=== PATIENT | male | born 1995 | race Caucasian/White ===

== ENCOUNTER 2017-10-24 20:37 | Emergency (ER) | payer MEDICAID, OTHER ==
[2017-10-24] MEDS ORDERED: Ketorolac 30 MG/ML SDV IM ONE (21:07)
[2017-10-24] MEDS ORDERED: Ondansetron 4 MG/2 ML SDV IM ONE (21:07)
[2017-10-24] MEDS ORDERED: hydrOXYzine HCl 50 MG/ML SDV IM ONE (21:07)
--- NOTE | 2017-10-24 21:12 | EDM.PDOC ---
ED HPI GENERAL MEDICAL PROBLEM - General Chief Complaint: Headache Stated Complaint: MIGRAINE Time Seen by Provider: 10/24/17 21:00 Source of Information: Reports: Patient, Family History Limitations: Reports: No Limitations - History of Present Illness INITIAL COMMENTS - FREE TEXT/NARRATIVE: Matthias reports onset of throbbing frontal headache over the past 2 hrs that is unimproved with Ibuprofen 600 mg. There is some photophobia, but no gosia nausea. He reportedly has a PMH of migraine headaches since age 13. 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 Frontal Headache Pain Score (Numeric/FACES): 8 - Related Data Allergies Allergy/AdvReac Type Severity Reaction Status Date / Time amoxicillin [Amoxicillin] Allergy Hives Verified 08/30/14 14:04 Home Meds: Home Meds NK [No Known Home Meds] 08/30/14 [History] Past Medical History - Past Health History Medical/Surgical History: Denies Medical/Surgical History Gastrointestinal History: Reports: Gastritis Neurological History: Reports: Migraines - Past Surgical History GI Surgical History: Reports: None Social & Family History - Family History Family Medical History: Noncontributory - Tobacco Use Smoking Status *Q: Never Smoker Years of Tobacco use: 5 Second Hand Smoke Exposure: No - Caffeine Use Caffeine Use: Reports: Soda - Alcohol Use Days Per Week of Alcohol Use: 2 Number of Drinks Per Day: 7 Total Drinks Per Week: 14 - Recreational Drug Use Recreational Drug Use: No - Living Situation & Occupation Living situation: Reports: Single Occupation: Employed ED ROS GENERAL - Review of Systems Review Of Systems: ROS reveals no pertinent complaints other than HPI. - Physical Exam Exam: See Below Exam Limited By: No Limitations General Appearance: Alert, WD/WN, Moderate Distress Eye Exam: Bilateral Eye: EOMI, Normal Inspection, PERRL Ears: Normal External Exam, Normal TMs Nose: Normal Inspection Throat/Mouth: Normal Inspection, Normal Oropharynx Head Exam: Normocephalic Neck: Normal Inspection, Supple Respiratory/Chest: Lungs Clear, Normal Breath Sounds Cardiovascular: Regular Rate, Rhythm, No Murmur GI/Abdominal: Normal Bowel Sounds, Soft, Non-Tender, No Organomegaly Neuro Exam (Abbreviated): Alert, Oriented, CN II-XII Intact, Normal Cognition, Normal Gait, No Motor/Sensory Deficits Back Exam: Normal Inspection Extremities: Normal Inspection Psychiatric: Normal Affect, Normal Mood Skin Exam: Warm, Dry, Intact Course - Vital Signs Text/Narrative:: I administered Toradol 30 mg IM, Vistaril 50 mg IM, and Zofran 4 mg IM before discharge. Patient tolerated well. Last Recorded V/S: Last Vital Signs Temp 36.6 C 10/24/17 20:45 Pulse 83 10/24/17 20:45 Resp 18 10/24/17 20:45 BP 138/71 10/24/17 20:45 Pulse Ox 100 10/24/17 20:45 - Orders/Labs/Meds Orders: Active Orders 24 hr Category Date Time Status Ketorolac [Toradol] Med 10/24/17 21:07 Once 30 mg IM ONETIME ONE Ondansetron [Zofran] Med 10/24/17 21:07 Once 4 mg IM ONETIME ONE hydrOXYzine HCl [Vistaril] Med 10/24/17 21:07 Once 50 mg IM ONETIME ONE Departure - Departure Time of Disposition: 21:11 Disposition: Home, Self-Care 01 Condition: Fair Clinical Impression: Migraine - Discharge Information Referrals: Arnav Keith MD [Primary Care Provider] - - Problem List & Annotations (1) Migraine SNOMED Code(s): 19382748 Code(s): G43.909 - MIGRAINE, UNSP, NOT INTRACTABLE, WITHOUT STATUS MIGRAINOSUS Status: Acute Current Visit: Yes Annotation/Comment:: Sxs cares, and follow up if needed. - Problem List Review Problem List Initiated/Reviewed/Updated: Yes - My Orders Last 24 Hours: My Active Orders 10/24/17 21:07 Ketorolac [Toradol] 30 mg IM ONETIME ONE Ondansetron [Zofran] 4 mg IM ONETIME ONE hydrOXYzine HCl [Vistaril] 50 mg IM ONETIME ONE - Assessment/Plan Last 24 Hours: My Active Orders 10/24/17 21:07 Ketorolac [Toradol] 30 mg IM ONETIME ONE Ondansetron [Zofran] 4 mg IM ONETIME ONE hydrOXYzine HCl [Vistaril] 50 mg IM ONETIME ONE Plan: Follow up with PCP if needed.
== END 2017-10-24 21:48 | disposition home or self-care (01) ==
LOC: FB.ED 20:37
DX: G43.909 Migraine, unspecified, not intractable, without status migrainosus (principal); Z88.1 Allergy status to other antibiotic agents
CPT/HCPCS: 96372; 99283; J1885; J2405; J3410

== ENCOUNTER 2020-02-08 01:23 | Emergency (ER) | payer BC ==
--- NOTE | 2020-02-08 02:05 | EDM.PDOCBH ---
ED HPI GENERAL MEDICAL PROBLEM - General Chief Complaint: Behavioral/Psych Stated Complaint: MENTAL HEALTH Time Seen by Provider: 02/08/20 01:30 Source of Information: Reports: Patient, EMS History Limitations: Reports: No Limitations - History of Present Illness INITIAL COMMENTS - FREE TEXT/NARRATIVE: Patient presented to the ED accompanied by law enforcement because of suicidal ideation. The spouse called the police because he cut his left upper arm last night and today he has binge drinking. He has a history of anxiety and depression which is not treated. He was diagnosed with it since he was 12 Y/O. He said he just don't like taking psych meds. He had a previous history of attempted suicide when he was 12. - Related Data Allergies Allergy/AdvReac Type Severity Reaction Status Date / Time amoxicillin [Amoxicillin] Allergy Hives Verified 08/30/14 14:04 Past Medical History - Past Health History Medical/Surgical History: Denies Medical/Surgical History Gastrointestinal History: Reports: Gastritis Neurological History: Reports: Migraines - Past Surgical History GI Surgical History: Reports: None Social & Family History - Family History Family Medical History: Noncontributory - Caffeine Use Caffeine Use: Reports: Soda - Living Situation & Occupation Living situation: Reports: Single Occupation: Employed ED ROS GENERAL - Review of Systems Review Of Systems: See Below Constitutional: Reports: No Symptoms HEENT: Reports: No Symptoms Respiratory: Reports: No Symptoms Cardiovascular: Reports: No Symptoms Endocrine: Reports: No Symptoms : Reports: No Symptoms Musculoskeletal: Reports: No Symptoms Skin: Reports: Wound Neurological: Reports: No Symptoms Psychiatric: Reports: Agitation, Anxiety, Depression ED EXAM, BEHAVIORAL HEALTH - Physical Exam Exam: See Below Exam Limited By: No Limitations General Appearance: Alert, No Apparent Distress Ears: Normal External Exam, Normal Canal, Hearing Grossly Normal Nose: Normal Inspection, Normal Mucosa Throat/Mouth: Normal Inspection, Normal Lips, Normal Teeth, Normal Gums Head: Atraumatic, Normocephalic Neck: Normal Inspection, Supple, Non-Tender Respiratory/Chest: No Respiratory Distress, Lungs Clear, Normal Breath Sounds Cardiovascular: Normal Peripheral Pulses, Regular Rate, Rhythm, No Edema, No Gallop, No JVD GI/Abdominal: Normal Bowel Sounds, Soft, Non-Tender, No Organomegaly, No Distention Back Exam: Normal Inspection, Full Range of Motion Extremities: Normal Inspection, Other (several shalow cuts on left upper arm.) COURSE, BEHAVIORAL HEALTH COMP - Course Vital Signs: Last Vital Signs Temp 36.6 C 02/08/20 01:33 Pulse 131 H 02/08/20 01:33 Resp 18 02/08/20 01:33 BP 142/87 H 02/08/20 01:33 Pulse Ox 100 02/08/20 01:33 Orders, Labs, Meds: Laboratory Tests 02/08/20 02/08/20 02/08/20 Range/Units 01:55 01:55 01:55 WBC 5.1 (4.5-12.0) X10-3/uL RBC 4.92 (4.30-5.75) x10(6)uL Hgb 15.4 (13.5-17.8) g/dL Hct 47.0 (30.0-51.3) % MCV 95.5 (80-96) fL MCH 31.4 (27.7-33.6) pg MCHC 32.8 (32.2-35.4) g/dL RDW 12.0 (11.5-15.5) % Plt Count 314 (125-369) X10(3)uL MPV 7.7 (7.4-10.4) fL Neut % (Auto) 37.7 L (46-82) % Lymph % (Auto) 52.4 H (13-37) % [place] % (Auto) 6.8 (4-12) % Eos % (Auto) 2 (1.0-5.0) % Baso % (Auto) 1 (0-2) % Neut # (Auto) 1.9 (1.6-8.3) # Lymph # (Auto) 2.7 (0.6-5.0) # [place] # (Auto) 0.3 (0.0-1.3) # Eos # (Auto) 0.1 (0.0-0.8) # Baso # (Auto) 0.1 (0.0-0.2) # Sodium 147 H (135-145) mmol/L Potassium 3.6 (3.5-5.3) mmol/L Chloride 106 (100-110) mmol/L Carbon Dioxide 28 (21-32) mmol/L BUN 9 (7-18) mg/dL Creatinine 1.0 (0.70-1.30) mg/dL Est Cr Clr Drug Dosing 100.55 mL/min Estimated GFR (MDRD) > 60 (>60) BUN/Creatinine Ratio 9.0 (9-20) Glucose 144 H (80-116) mg/dL Calcium 8.5 L (8.6-10.2) mg/dL Total Bilirubin 0.3 (0.1-1.3) mg/dL AST 32 H (5-25) IU/L ALT 37 H (12-36) U/L Alkaline Phosphatase 85 (56-112) IU/L Total Protein 8.7 H (6.0-8.0) g/dL Albumin 4.5 (3.5-5.2) g/dL Globulin 4.2 g/dL Albumin/Globulin Ratio 1.1 TSH, Ultra Sensitive 1.53 (0.36-3.74) IU/mL Urine Color (YELLOW) Urine Appearance (CLEAR) Urine pH (5.0-6.5) Ur Specific [place] (1.010-1.025) Urine Protein (NEGATIVE) mg/dL Urine Glucose (UA) (NORMAL) mg/dL Urine Ketones (NEGATIVE) mg/dL Urine Occult Blood (NEGATIVE) Urine Nitrite (NEGATIVE) Urine Bilirubin (NEGATIVE) Urine Urobilinogen (NEGATIVE) mg/dL Ur Leukocyte Esterase (NEGATIVE) Urine RBC (0-5) Urine WBC (0-5) Ur Squamous Epith Cells (NS,R,O) Urine Bacteria (NS) Urine Mucus (NS) Salicylates 8.2 (<2.8) mg/dL Urine Opiates Screen (NEGATIVE) Ur Oxycodone Screen (NEGATIVE) Ur Propoxyphene Screen (NEGATIVE) Acetaminophen < 2 L (<2) ug/mL Ur Barbituates Screen (NEGATIVE) Ur Tricyclics Screen (NEGATIVE) Ur Phencyclidine Scrn (NEGATIVE) Ur Amphetamine Screen (NEGATIVE) Urine MDMA Screen (NEGATIVE) U Benzodiazepines Scrn (NEGATIVE) U Cocaine Metab Screen (NEGATIVE) U Marijuana (THC) Screen (NEGATIVE) Ethyl Alcohol 0.35 H* (<0.03) % 02/08/20 02/08/20 Range/Units 02:05 02:05 WBC (4.5-12.0) X10-3/uL RBC (4.30-5.75) x10(6)uL Hgb (13.5-17.8) g/dL Hct (30.0-51.3) % MCV (80-96) fL MCH (27.7-33.6) pg MCHC (32.2-35.4) g/dL RDW (11.5-15.5) % Plt Count (125-369) X10(3)uL MPV (7.4-10.4) fL Neut % (Auto) (46-82) % Lymph % (Auto) (13-37) % [place] % (Auto) (4-12) % Eos % (Auto) (1.0-5.0) % Baso % (Auto) (0-2) % Neut # (Auto) (1.6-8.3) # Lymph # (Auto) (0.6-5.0) # [place] # (Auto) (0.0-1.3) # Eos # (Auto) (0.0-0.8) # Baso # (Auto) (0.0-0.2) # Sodium (135-145) mmol/L Potassium (3.5-5.3) mmol/L Chloride (100-110) mmol/L Carbon Dioxide (21-32) mmol/L BUN (7-18) mg/dL Creatinine (0.70-1.30) mg/dL Est Cr Clr Drug Dosing mL/min Estimated GFR (MDRD) (>60) BUN/Creatinine Ratio (9-20) Glucose (80-116) mg/dL Calcium (8.6-10.2) mg/dL Total Bilirubin (0.1-1.3) mg/dL AST (5-25) IU/L ALT (12-36) U/L Alkaline Phosphatase (56-112) IU/L Total Protein (6.0-8.0) g/dL Albumin (3.5-5.2) g/dL Globulin g/dL Albumin/Globulin Ratio TSH, Ultra Sensitive (0.36-3.74) IU/mL Urine Color Yellow (YELLOW) Urine Appearance Clear (CLEAR) Urine pH 5.0 (5.0-6.5) Ur Specific [place] 1.010 (1.010-1.025) Urine Protein 30 H (NEGATIVE) mg/dL Urine Glucose (UA) Normal (NORMAL) mg/dL Urine Ketones Negative (NEGATIVE) mg/dL Urine Occult Blood Negative (NEGATIVE) Urine Nitrite Negative (NEGATIVE) Urine Bilirubin Negative (NEGATIVE) Urine Urobilinogen Normal (NEGATIVE) mg/dL Ur Leukocyte Esterase Negative (NEGATIVE) Urine RBC 0-5 (0-5) Urine WBC 0-5 (0-5) Ur Squamous Epith Cells Rare (NS,R,O) Urine Bacteria Few H (NS) Urine Mucus Moderate H (NS) Salicylates (<2.8) mg/dL Urine Opiates Screen Negative (NEGATIVE) Ur Oxycodone Screen Negative (NEGATIVE) Ur Propoxyphene Screen Negative (NEGATIVE) Acetaminophen (<2) ug/mL Ur Barbituates Screen Negative (NEGATIVE) Ur Tricyclics Screen Negative (NEGATIVE) Ur Phencyclidine Scrn Negative (NEGATIVE) Ur Amphetamine Screen Negative (NEGATIVE) Urine MDMA Screen Negative (NEGATIVE) U Benzodiazepines Scrn Negative (NEGATIVE) U Cocaine Metab Screen Negative (NEGATIVE) U Marijuana (THC) Screen Negative (NEGATIVE) Ethyl Alcohol (<0.03) % Re-Assessment/Re-Exam: Labs reviewed and discussed with patient and verbalized full understanding. Psych consult was done with Irene Mckeon who recommended out patient follow up and treatment Departure - Departure Time of Disposition: 02:55 Disposition: Home, Home Health Agency 06 Condition: Good Clinical Impression: Suicidal ideation, Anxiety, Depression - Discharge Information Instructions: Major Depressive Disorder, Adult, [id number], Suicidal Feelings : How to Help Yourself, Living With Anxiety Referrals: PCP,None [Primary Care Provider] - Forms: ED Department Discharge Additional Instructions: Please read discharge instructions on suicidal ideation,anxiety and depression follow up with your doctor so can be referred to see a psychiatrist for your anxiey and depression if you feel like you want to hurt yourself or other people call the crisis hotline Sepsis Event Note - Evaluation Sepsis Screening Result: No Definite Risk - Focused Exam Vital Signs: Vital Signs Temp Pulse Resp BP Pulse Ox 02/08/20 01:33 36.6 C 131 H 18 142/87 H 100 Date Exam was Performed: 02/08/20 Time Exam was Performed: 03:03
[2020-02-08 02:22] LABS: ACETAMINOPHEN < 2 ug/mL (<2)
== END 2020-02-08 03:42 | disposition home health service (06) ==
LOC: FB.ED 01:23
DX: F32.9 Major depressive disorder, single episode, unspecified (principal); F41.9 Anxiety disorder, unspecified; S41.112A Laceration without foreign body of left upper arm, initial encounter; Z88.1 Allergy status to other antibiotic agents; X58.XXXA Exposure to other specified factors, initial encounter
CPT/HCPCS: 36415; 80053; 80305-QW; 80307; 81001; 84443; 85025; 99285